=== PATIENT | male | born 2005 | race Caucasian/White ===

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

== ENCOUNTER → 2024-07-28 | Outpatient (CLI) | payer BC, SELFPAY ==
[2024-07-28 16:00] LABS: Free T3 3.1 pg/mL (2.18-3.98); T4 Free Direct 1.29 ng/dL (0.76-1.46); Thyroid Stim Hormone (TSH) 0.892 uIU/mL (0.358-3.740)
[2024-07-31 17:07] LABS: Thyroglobulin Antibody < 1.0 IU/mL (0.0-0.9); Thyroid Peroxidase AB < 9 IU/mL (0-26)
== END | disposition home or self-care (01) ==
PROVIDERS: PCP Family Medicine; Referring Provider Family Medicine; Visit Provider Family Medicine
DX: E03.9 Hypothyroidism, unspecified (principal)
CPT/HCPCS: 36415; 84439; 84443; 84481; 86376; 86800

== ENCOUNTER 2025-01-14 04:05 | Emergency (ER) | payer BC, SELFPAY ==
[2025-01-14 04:06] VITALS: BP 123/66; PULSE 97; RESP 16; TEMP 36.8; O2SAT 100; BMI 24.6
--- NOTE | 2025-01-14 04:44 | EX.ED.GUMALE ---
HPI History of Present Illness Chief Complaint: Male Pain/Injury Informant: patient Narrative Narrative: 19-year-old male presenting to the emergency room with a chief complaint of penile pain. Patient was having intercourse in the missionary position tonight when he felt a pop mostly just to the left of his penis and on the left side of his penis. He states when he felt the pop he felt that his penis was being pushed downward awkwardly. States it was uncomfortable. After intercourse he was able to urinate. He denies any bruising swelling. He notes radiation towards the testicle but no testicular swelling or pain. He denies any bulges. No bleeding. PFSH PFS Medical History Strain of right knee Home Medications ?Medication ?Instructions ?Recorded ?Last Taken ?Type NK 01/14/25 Unknown History Allergy/AdvReac Type Severity Reaction Status Date / Time azithromycin (From Zithromax) Allergy Hives Verified 12/07/23 12:00 Social History Smoking Status: Current every day smoker tobacco type: e-cigarettes ROS ROS ED Constitutional Constitutional ED: Denies chills or weight loss Eyes Eyes: Denies change in vision or diplopia ENT ENT ED: Denies ear pain, rhinorrhea or sore throat Cardiovascular Cardiovascular: Denies chest pain, orthopnea, palpitations or racing heartbeat Respiratory/Chest Respiratory/Chest: Denies cough, dyspnea or orthopnea Gastrointestinal Gastrointestinal: Denies abdominal pain, diarrhea, nausea or vomiting Genitourinary Genitourinary ED: Reports other Details: See history of present illness ; Denies dysuria, hematuria or urinary frequency Musculoskeletal Musculoskeletal: Denies arthralgias or myalgias Integumentary Denies abscess or rash Neurologic Neurologic: Denies headache(s) or weakness Psychiatric Psychiatric: Denies anxiety, depression, suicidal ideation or suicidal thoughts Endocrine Endocrinology: Denies polydipsia, polyphagia or polyuria Allergic/Immunologic Allergic/Immunologic ED: Denies mouth swelling, tongue swelling or urticaria EXAM Physical Exam Const Vital Signs: 01/14/25 04:06 Temperature 98.3 F Temperature Source Oral Pulse Rate 97 Respiratory Rate 16 Blood Pressure 123/66 H Blood Pressure Mean 85 Pulse Ox 100 Oxygen Delivery Method Room Air Positive well nourished and well developed General Appearance ED: well developed and NAD HEENT Reports normocephalic, head/scalp atraumatic and moist mucous membranes Eyes PERRL and EOMs intact bilaterally Neck no lymphadenopathy, supple and no JVD Resp normal respiratory effort and clear to auscultation bilaterally Cardio regular rate, regular rhythm and no murmurs GI normal to inspection, nondistended, normoactive bowel sounds and non-tender Palpation: soft Narrative: There is no significant swelling or ecchymosis. He is circumcised. Testicular exam is normal. He has pain at the base of the penile shaft and just to the left towards the normal lie of the spermatic cord. I do not appreciate any bulges. Urethral meatus appears normal. Back/Spine no CVA tenderness and normal ROM Extremity normal to inspection General Extremety ED: Negative for edema General Extremity: Negative for edema Neuro oriented x3 and CN's II-XII intact bilaterally Sensorium / Orientation: alert Motor Exam: strength 5/5 throughout Psych mental status grossly normal Mood & Affect: Negative for depressed or tearful Skin no rashes or lesions noted and no wounds MDM MDM MDM Narrative Medical decision making narrative: Differential diagnosis includes but not limited to testicular torsion hematoma arterial venous injury ligamentous injury fascial injury penile fracture urethral trauma Clinically the patient appears well. I do not find much on physical exam other than some mild tenderness. Would recommend supportive briefs ice ibuprofen and avoidance of strenuous lifting and sexual activity until symptoms have resolved. He may follow-up with urology if he chooses but if he has worsening symptoms would recommend return to emergency. Patient is comfortable with this plan History & Record Review Discussion w/independent historian: Patient Discharge Plan Triage Chief Complaint: Male Pain/Injury ED Provider: Efe Greene Dx/Rx/DC Orders Clinical Impression: Strain of fascia of pelvis Prescriptions: No Action NK Primary Care Provider: Sandy Sabillon Referrals: Edgardo Montes MD [Med Staff - Active Staff] - As Needed (If you need urologic follow-up) Sandy Sabillon DO [Primary Care Provider] - Activity Restrictions/Additional Instructions: I would recommend supportive briefs, ice, ibuprofen and pelvic rest (avoid strenuous lifting or sexual intercourse until symptoms have resolved) Print Language: Zambian Disposition Disposition: Home, Self Care
[2025-01-14 04:49] VITALS: BP 132/73; PULSE 90; RESP 16; TEMP 36.7; O2SAT 100
== END 2025-01-14 04:58 | disposition home or self-care (01) ==
LOC: ED 04:46
PROVIDERS: Emergency Provider Emergency Medicine; PCP Family Medicine; Visit Provider Emergency Medicine
DX: S39.013A Strain of muscle, fascia and tendon of pelvis, initial encounter (principal); X50.9XXA Other and unspecified overexertion or strenuous movements or postures, initial encounter; F17.290 Nicotine dependence, other tobacco product, uncomplicated
CPT/HCPCS: 99282

== ENCOUNTER → 2025-02-19 | Outpatient (CLI) | payer BC, SELFPAY | END | disposition home or self-care (01) | PROVIDERS: PCP Family Medicine; Referring Provider Family Medicine; Visit Provider Family Medicine | DX: T78.40XA Allergy, unspecified, initial encounter (principal); Z91.030 Bee allergy status | CPT/HCPCS: 36415 ==